=== PATIENT | male | born 1955 | race Caucasian/White ===

== ENCOUNTER → 2016-07-31 | Outpatient (CLI) | payer BC ==
--- NOTE | 2016-07-31 12:07 | RAD ---
Examination: MRI of the right shoulder without contrast HISTORY: History of right shoulder pain for 2 months COMPARISON: None available. Technique: Multiplanar, multisequence MR imaging of the right shoulder was performed without contrast FINDINGS: The long head of the biceps tendon is within the bicipital groove. The attachment of the long head of the biceps tendon to the superior labral anchor grossly appears intact. The The subscapularis tendon grossly appears intact. There is mild increased signal identified in the subscapularis tendon likely tendinosis. There is increased signal identified in the undersurface fibers of the supraspinatus tendon measuring 1.4 cm in transverse dimension, best visualized on series 7 image #10 likely undersurface tear of the supraspinatus tendon. There is a small focus of probable full-thickness tear in the supraspinatus tendon as there is mild fluid into subacromial subdeltoid bursa. There is tendinosis of the supraspinatus, infraspinatus tendons. No evidence of tendon retraction identified. There is mild increased signal identified throughout the labrum likely degeneration. The teres minor tendon grossly present. Moderate degenerative changes are identified in the acromioclavicular joint. The acromion is downsloping the inferior aspect of the acromion abutting the superior aspect of the supraspinatus tendon. There is obliteration of fat in the rotator cuff region. There is mild fatty infiltration identified in the Teres minor muscle. IMPRESSION: 1. High-grade partial undersurface tearing of the supraspinatus tendon with probable small focus of full-thickness tear with some extension of fluid in the subacromial subdeltoid bursa. The inferior aspect of the acromion abuts the superior surface of the supraspinatus tendon with small osteophyte formation in the inferior aspect of the distal clavicle. Correlate for impingement. 2. Obliteration of fat in the rotator interval. Correlate for adhesive capsulitis 3. Moderate degenerative changes acromioclavicular joint, glenohumeral joints. 4. Isolated mild fatty infiltration of the teres minor muscle. Electronically signed by: Rick Guo MD (07/31/2016 12:04 PM)
== END | disposition home or self-care (01) ==
LOC: MRI 10:29
PROVIDERS: ATTEND Physician Assistant Medical
DX: M25.711 Osteophyte, right shoulder (principal); M25.511 Pain in right shoulder
CPT/HCPCS: 73221

== ENCOUNTER → 2017-04-23 | Outpatient (CLI) | payer BC | END | disposition home or self-care (01) | LOC: PETSC 09:45 | DX: R91.8 Other nonspecific abnormal finding of lung field (principal) | CPT/HCPCS: 78815; A9552 ==